=== PATIENT | male | born 1940 | race Caucasian/White ===

== ENCOUNTER → 2018-11-24 | Outpatient (CLI) | payer MEDICARE ==
[~2018-11-24] MED LIST: ASCO-339 PO; ATOR10TA PO; FERR325T6 PO; FOLI-43 PO; FOLI1TAB63 PO; INSLIS SUBCUT; LANTUSUD SUBCUT; LEVO750T46 PO; LINA5TAB PO; METF-414 PO; SULF-288 PO
== END | disposition home or self-care (01) ==
LOC: RAD 14:53
PROVIDERS: ATTEND Podiatrist Foot & Ankle Surgery
DX: M86.8X7 Other osteomyelitis, ankle and foot (principal)
CPT/HCPCS: 73630

== ENCOUNTER 2019-01-25 10:18 | Inpatient (IN) | payer MEDICARE ==
[~2019-01-25] VITALS: Ht 152.4 cm; Wt 69.4 kg
[2019-01-25] VITALS (10 sets, daily range): BP systolic 114–178; BP diastolic 53–79
[~2019-01-25 10:18] MED LIST changes: -ASCO-339 PO; -ATOR10TA PO; -FERR325T6 PO; -FOLI-43 PO; -FOLI1TAB63 PO; -LEVO750T46 PO; -METF-414 PO; -SULF-288 PO
[2019-01-25 13:11] LABS: HEMATOCRIT 30.8 % (42.0-52.0); HEMOGLOBIN 10.5 g/dL (14.0-18.0); MEAN CORPUSCULAR HEMOGLOBIN 31.3 pg (28.0-32.0); MEAN CORPUSCULAR VOLUME 91.8 fL (80.0-94.0); PLATELET 254 x1000/uL (130-400); RED BLOOD CELL COUNT 3.36 mill/uL (4.7-6.1); RED CELL DISTRIBUTION WIDTH 12.8 % (11.6-14.6)
[2019-01-25] MEDS ORDERED: LIDOCAINE HCL 1% 20ML VIAL (Pyxis) INJ ONE ×2 (13:17→14:04)
[2019-01-25] MEDS ORDERED: IODIXANOL 320MG/ML 100 ML BOTTLE IV ONE (13:18)
[2019-01-25] MEDS ORDERED: ASCO-339 PO (13:25)
[2019-01-25] MEDS ORDERED: FERR325T6 PO (13:25)
[2019-01-25] MEDS ORDERED: ATOR10TA PO (13:25)
[2019-01-25] MEDS ORDERED: METF-414 PO (13:25)
[2019-01-25] MEDS ORDERED: FOLI-43 PO (13:25)
[2019-01-25] MEDS ORDERED: FOLI1TAB63 PO (13:25)
[2019-01-25] MEDS ORDERED: LEVO750T46 PO (13:25)
[2019-01-25] MEDS ORDERED: SULF-288 PO (13:25)
[2019-01-25] MEDS ORDERED: FENTANYL CITRATE/PF 50MCG/ML 2ML VIAL ONE (13:36)
[2019-01-25] MEDS ORDERED: MIDAZOLAM HCL 2 MG/2 ML VIAL ONE (13:36)
[2019-01-25] MEDS ORDERED: IOHEXOL-300 100 ML BOTTLE ONE (13:56)
[2019-01-25] MEDS ORDERED: HEPARIN SODIUM 1,000 UNIT/1ML VIAL IV ONE (14:40)
[2019-01-25] MEDS ORDERED: ACETAMINOPHEN 325MG TABLET PO PRN (14:45)
[2019-01-25] MEDS ORDERED: MORPHINE SULFATE 4 MG/ML CPJ (NOT FOR IM USE) IV PRN (14:45)
[2019-01-25] MEDS ORDERED: ATROPINE SULFATE 1MG/10ML SYR IV PRN (14:45)
[2019-01-25] MEDS ORDERED: ONDANSETRON HCL 4MG/2ML INJ IV PRN (14:45)
[2019-01-25] MEDS ORDERED: DEXTROSE 50% WATER 50ML SYRINGE IV PRN (15:00)
[2019-01-25] MEDS ORDERED: ASPIRIN 325MG TABLET ONE (15:00)
[2019-01-25] MEDS ORDERED: CLOPIDOGREL 75MG TABLET PO NR (16:00)
[2019-01-25] MEDS ORDERED: SODIUM CHLORIDE 0.45% 1,000 ML IV ONE (16:00)
[2019-01-25] MEDS ORDERED: CLONIDINE 0.1MG TABLET PO PRN (16:15)
[2019-01-25] MEDS ORDERED: HYDRALAZINE 20MG/ML VIAL IV PRN (16:15)
[2019-01-25] MEDS: BLOOD SUGAR DIAGNOSTIC STRIP TEST SCH ×2 (16:50→20:49)
[2019-01-25] MEDS: AMLODIPINE 2.5MG TABLET PO SCH (17:07)
[2019-01-25] MEDS: INSULIN LISPRO 100 UNITS/ML SUBCUT SCH ×2 (17:38→21:08)
[2019-01-25] MEDS ORDERED: ATORVASTATIN CALCIUM 10MG TABLET PO SCH (21:00)
[2019-01-26] VITALS (9 sets, daily range): BP systolic 104–124; BP diastolic 53–67
[2019-01-26] MEDS: BLOOD SUGAR DIAGNOSTIC STRIP TEST SCH ×2 (06:45→11:30)
[2019-01-26 07:09] LABS: BASOPHILS % 0.1 % (0.0-2.0); EOSINOPHILS % 2.8 % (0.0-5.0); HEMATOCRIT. 29.4 % (42.0-52.0); HEMOGLOBIN. 9.9 g/dL (14.0-18.0); LYMPHOCYTES % 9.2 % (20.0-50.0); MEAN CORPUSCULAR HEMOGLOBIN 30.9 pg (28.0-32.0); MEAN CORPUSCULAR VOLUME 91.3 fL (80.0-94.0); MEAN PLATELET VOLUME 8.9 fl (7.4-10.4); MONOCYTES % 3.2 % (2.0-8.0); NEUTROPHILS % 84.7 % (40.0-76.0); PLATELET 238 x1000/uL (130-400); RED BLOOD CELL COUNT 3.22 mill/uL (4.7-6.1); RED CELL DISTRIBUTION WIDTH 13.2 % (11.6-14.6)
[2019-01-26] MEDS: INSULIN LISPRO 100 UNITS/ML SUBCUT SCH ×2 (07:24→11:34)
[2019-01-26] MEDS: AMLODIPINE 2.5MG TABLET PO SCH (07:25)
[2019-01-26 07:31] LABS: CHLORIDE 104 mEq/L (98-107)
[2019-01-26] MEDS ORDERED: CLOPIDOGREL 75MG TABLET PO SCH (09:00)
[2019-01-26] MEDS ORDERED: ASPIRIN 325MG TABLET PO SCH (09:00)
== END 2019-01-26 13:30 | disposition home or self-care (01) | DRG 253 ==
LOC: CCL 10:18 → 3WST 10:19
PROVIDERS: ADMIT Specialist; ATTEND Specialist
PROC: 047N3ZZ Dilation of Left Popliteal Artery, Percutaneous Approach (ICD-10-PCS; principal; 2019-01-25)
PROC: 047L3DZ Dilation of Left Femoral Artery with Intraluminal Device, Percutaneous Approach (ICD-10-PCS; 2019-01-25)
PROC: B41G1ZZ Fluoroscopy of Left Lower Extremity Arteries using Low Osmolar Contrast (ICD-10-PCS; 2019-01-25)
PROC: B41F1ZZ Fluoroscopy of Right Lower Extremity Arteries using Low Osmolar Contrast (ICD-10-PCS; 2019-01-25)
DX: E11.51 Type 2 diabetes mellitus with diabetic peripheral angiopathy without gangrene (principal); I70.92 Chronic total occlusion of artery of the extremities; I70.201 Unspecified atherosclerosis of native arteries of extremities, right leg; E11.40 Type 2 diabetes mellitus with diabetic neuropathy, unspecified; I10 Essential (primary) hypertension; D64.9 Anemia, unspecified; Z87.891 Personal history of nicotine dependence
CPT/HCPCS: 36415; 37226; 75710; 80048; 82962; 85027; 85347; 93005; C1725; C1726; C1760; C1769; C1876; C1893; C1894; J1644; J1815; J2250; J3010; J3490; Q9967